=== PATIENT | male | born 1945 | race Caucasian/White ===

== ENCOUNTER 2019-05-09 07:13 | Inpatient (IN) | payer OTHER ==
[2019-05-03 16:36] VITALS: BMI 33.3
[2019-05-09] MEDS ORDERED: TRANEXAMIC ACID 1000 MG/10 ML VIAL IVPUSH ONE (07:29)
[2019-05-09] MEDS ORDERED: CEFAZOLIN 3 GM in DEXTROSE 5%-WATER - 50 ML IVPB ONE (07:29)
[2019-05-09] MEDS ORDERED: CELECOXIB 200 MG CAPSULE PO ONE (07:29)
--- NOTE | 2019-05-09 08:01 | HP ---
Satellite [facility] - Chief Complaint Chief Complaint: right knee pain - Past Medical History Allergies/Adverse Reactions: Allergies Allergy/AdvReac Type Severity Reaction Status Date / Time Penicillins Allergy Unknown Verified 05/09/19 07:34 - Current Medications Current Medications: Home Medications Medication Instructions Recorded Amlodipine Besylate [Norvasc] 5 mg PO DAILY 03/12/12 Metoprolol Succinate [Toprol Xl] 25 mg PO DAILY 05/03/19 Red Yeast Rice 600 mg PO DAILY 05/03/19 Tamsulosin HCl [Flomax] 0.4 mg PO DAILY 05/03/19 metFORMIN HCL [Metformin HCl] 500 mg PO BID 05/03/19 Satellite Physical Exam - Physical Examination Vital Signs: Vital Signs Period Temp Pulse Resp BP Sys/Greene Pulse Ox Last 24 Hr 98.2 F 77 16 155/81 General Appearance: Well Nourished, Well Developed, Alert & Oriented x3 ENT: Clear Lung: Normal air movement Heart: Regular rate & rhythm Extremities: Other (right knee- + swelling, + ttp, decr rom, nvi, xrays show grade 4 tricompartmental djd) Neurological: Intact, Alert, Oriented Satellite Impression/Plan - Impression/Plan Impression: right knee djd Operative Procedure: right aleisha tkr Date to be Performed: 05/09/19
[2019-05-09] MEDS ORDERED: DEXAMETHASONE SOD PHOSPHATE 4 MG/1 ML VIAL ONE (09:23)
[2019-05-09] MEDS ORDERED: MIDAZOLAM HCL 2 MG/2 ML SINGLE DOSE VIAL ONE ×3 (09:23→09:48)
[2019-05-09] MEDS ORDERED: KETOROLAC TROMETHAMINE 30 MG/1 ML VIAL ONE (09:23)
[2019-05-09] MEDS ORDERED: PROPOFOL 20 ML ONE ×3 (09:23→12:09)
[2019-05-09] MEDS ORDERED: ONDANSETRON 4 MG/2 ML VIAL ONE (09:23)
[2019-05-09] MEDS ORDERED: BUPIVACAINE LIPOSOME/PF (EXPAREL) 266 MG/20 ML VIAL ONE (09:48)
[2019-05-09] MEDS ORDERED: SODIUM CHLORIDE 0.9% P/F 10 ML VIAL IJ ONE (09:48)
[2019-05-09] MEDS ORDERED: ceFAZolin SODIUM 1 GM VIAL ONE ×2 (10:09→18:39)
[2019-05-09] MEDS ORDERED: VANCOMYCIN 1,000 MG VIAL (RESTRICTED TO ID ONLY) ONE (10:09)
[2019-05-09] MEDS ORDERED: ONDANSETRON 4 MG/2 ML VIAL IVPUSH PRN (10:33)
[2019-05-09] MEDS ORDERED: MAG HYDROX/AL HYDROX/SIMETH 30 ML UNIT-DOSE CUP PO PRN (10:33)
[2019-05-09] MEDS ORDERED: MAGNESIUM HYDROX 2400MG/30ML ORAL SUSPENSION 30 ML CUP PO PRN (10:33)
[2019-05-09] MEDS ORDERED: LACTATED RINGERS SOLUTION 1,000 ML IV SCH (10:45)
[2019-05-09] MEDS ORDERED: oxyCODONE HCL 5 MG TABLET PO PRN (11:41)
[2019-05-09] MEDS ORDERED: VANCOMYCIN 1,000 MG VIAL (RESTRICTED TO ID ONLY) IVPB ONE (12:24)
--- NOTE | 2019-05-09 12:51 | OP ---
Operative Note - Note: Operative Date: 05/09/19 (ramana) Pre-Operative Diagnosis: right knee djd Operation: right aleisha tkr Post-Operative Diagnosis: Same as Pre-op Surgeon: London Bacon Soa Integration Developer: Mina Feldman Anesthesia: Spinal, Local Specimens Removed: bone fragments Estimated Blood Loss (mls): 200 Operative Report Dictated: Yes
[2019-05-09] MEDS ORDERED: ACETAMINOPHEN 325 MG TABLET (FP) ONE (13:49)
[2019-05-09] MEDS: ACETAMINOPHEN 325 MG TABLET (FP) PO SCH ×2 (13:53→18:50)
[2019-05-09] MEDS: oxyCODONE HCL 5 MG TABLET PO PRN ×2 (16:24→21:17)
[2019-05-09] MEDS: metFORMIN HCL 500 MG TABLET (FP) PO SCH (16:25)
[2019-05-09] MEDS: INSULIN SLIDING SCALE (NOVOLOG) 1 VIAL SQ SCH ×2 (18:00→21:19)
[2019-05-09] MEDS: CEFAZOLIN 3 GM in DEXTROSE 5%-WATER 100 ML IVPB SCH (18:50)
--- NOTE | 2019-05-09 20:58 | SPEC ---
DATE OF OPERATION: 05/09/2019 PREOPERATIVE DIAGNOSIS: Degenerative joint disease, right knee. POSTOPERATIVE DIAGNOSIS: Degenerative joint disease, right knee. PROCEDURE: Right total knee replacement with robotic-assisted navigation (MAKOplasty) - cementless. SURGICAL ATTENDING: London Bacon MD SAP SOLUTION MANAGER CONSULTANT: AMPARO Hughes ANESTHESIA: Regional and spinal. CLOSURE: A Press-Fit [place] total knee system Triathlon with an 8 femur, 8 tibia, 11 polyethylene, 40 patella; No. 1 Vicryl, fascia; 0 and 2-0 for subcutaneous; and 3-0 Monocryl subcuticular with skin glue for skin; 4-0 undyed Vicryl for pin sites. ESTIMATED BLOOD LOSS: Less than 100 mL. COMPLICATIONS: None. CONDITION: To recovery room in stable condition. DESCRIPTION OF OPERATIVE PROCEDURE: Patient was taken to the operating room on May 09, 2019. Regional and spinal anesthesia was administered by the anesthesiologist. IV Kefzol was administered prophylactically prior to the case as well as TXA. The right lower extremity was prepped and draped in the usual sterile fashion. The midline 10- to 12-cm longitudinal incision was made. Hemostasis was achieved with Bovie cautery. Sharp dissection was carried down to the extensor mechanism which was perform the procedure. Medial parapatellar arthrotomy was then performed, leaving a cuff of tissue for later closure. The patella was inverted and the knee was flexed up. The fat pad was excised. Subperiosteal dissection was done on the anteromedial proximal tibia until the knee was able to be brought forward. This was facilitated by taking the ACL, PCL and medial and lateral menisci. Checkpoints were placed in both the femur and in the tibia. Two parallel threaded pins were drilled superior to the knee joint through the already made incision from anterior to posterior just going through the anterior cortex but just engaging but not going through the posterior cortex. Two threaded pins were drilled through 2 small stab incisions in parallel fashion 1 handbreadth below the tibial tubercle through the anterior cortex of the tibia and engaging but not going through the posterior cortex. Both sets of pins were attached to navigation arrays for the VIJAY system. The knee was then registered with the navigation system with center of rotation of the hip, medial and lateral malleoli and multiple sites both on the tibia and on the femur. Confirmation of excellent registration was confirmed by "popping the bubbles." At this time, the knee was thoroughly inspected to remove all osteophytes around the knee. The knee was then tensioned in varus/valgus at both full extension and at 90 degrees of flexion to ascertain our gaps. The virtual position of the components was optimized to ensure equal gaps throughout the range of motion. Once this was performed, the robot was brought into the field, was registered. The bone was cut as per the specifications on both the tibia and on the femur. The box cuts were then made as well. Excellent trial stability was obtained on the femur. The tibial baseplate was allowed to "find itself" and then was clipped into place. Confirmation of excellent external rotation of that component was confirmed by the navigation device as well.The patella was calibered for thickness and cut at the appropriate level. The appropriate lollipop was used to drill 3 holes in the patella and a trial asymmetric patellar button was applied. The knee was taken through a range of motion and found to have excellent stability from full extension to full flexion with excellent tracking of the patella. The trial components were then removed. The lug holes were drilled in the femur. The cementless keel was punched in the tibia. The real Press-Fit components were malleted into place, first with the tibia and then with the femur, and then the patella was crimped into place as well. The real polyethylene liner was then clipped into place. Range of motion, stability and tracking were as described earlier. The knee was thoroughly irrigated with copious amounts of irrigation. Vancomycin powder was placed inside the joint. The medial parapatellar arthrotomy was then closed using No. 1 Vicryl interrupted suture. Post closure of the arthrotomy, the knee was taken through a range of motion and found to have no undue tension on the repair. The subcutaneous was then pulse antibiotic irrigated, closed with 0 and 2-0 Vicryl and 3-0 Monocryl subcuticular with skin glue for the skin. Prior to closure, the checkpoints were removed as were the threaded pins. The tibial pin sites were closed with 4-0 undyed Vicryl. A sterile pressure Aquacel dressing was applied. No tourniquet was used during the case. The total blood loss was approximately 100 mL. No complication. Patient was transferred to recovery in stable condition. Delphine ESTRADA/[id number]
[2019-05-09] MEDS ORDERED: INSULIN (NOVOLOG) ASPART 100 UNITS/ML 10ML VIAL ONE (21:13)
[2019-05-09] MEDS: SENNOSIDES/DOCUSATE COMBO (SENNA PLUS) TABLET (UD) PO SCH (21:17)
[2019-05-10] MEDS: ACETAMINOPHEN 325 MG TABLET (FP) PO SCH ×5 (00:23→23:50)
[2019-05-10] MEDS ORDERED: DEXTROSE 5%-WATER 100 ML IVPB ONE ×2 (01:12→01:13)
[2019-05-10] MEDS ORDERED: ceFAZolin SODIUM 1 GM VIAL ONE ×2 (01:12→01:13)
[2019-05-10] MEDS: CEFAZOLIN 3 GM in DEXTROSE 5%-WATER 100 ML IVPB SCH (02:05)
[2019-05-10] MEDS: metFORMIN HCL 500 MG TABLET (FP) PO SCH ×2 (06:04→16:26)
[2019-05-10] MEDS: INSULIN SLIDING SCALE (NOVOLOG) 1 VIAL SQ SCH ×5 (06:50→21:27)
[2019-05-10 08:05] LABS: HEMATOCRIT 35.6 % (35.4-49); HEMOGLOBIN 12.2 GM/dl (11.7-16.9); MCH 30.5 pg (25.7-33.7); MCHC 34.2 g/dl (32.0-35.9); MEAN CELL VOLUME 89.3 fl (80-96); MEAN PLT VOLUME 9.3 fl (7.5-11.1); PLATELET COUNT 155 K/MM3 (134-434); RBC 3.99 M/mm3 (4.00-5.60); RDW 12.3 % (11.9-15.9); WHITE BLOOD COUNT 5.9 K/mm3 (4.0-10.8)
[2019-05-10] MEDS: TAMSULOSIN HCL 0.4 MG CAP PO SCH (08:07)
[2019-05-10] MEDS: ASPIRIN 325 MG TABLET PO SCH (08:07)
[2019-05-10] MEDS: metoPROLOL SUCCINATE 25 MG TAB.SR.24H (FP) PO SCH (09:50)
[2019-05-10] MEDS: SENNOSIDES/DOCUSATE COMBO (SENNA PLUS) TABLET (UD) PO SCH ×2 (09:50→21:26)
[2019-05-10] MEDS: MULTIVITAMINS (DAILY MVI) TABLET (FP) PO SCH (09:50)
[2019-05-10] MEDS: amLODIPine BESYLATE 5 MG TABLET (FP) PO SCH (09:50)
[2019-05-10] MEDS: oxyCODONE HCL 5 MG TABLET PO PRN ×3 (09:50→19:48)
[2019-05-10] MEDS: PANTOPRAZOLE 40 MG TABLET (FP) PO SCH (09:50)
--- NOTE | 2019-05-10 10:20 | PN ---
Progress Note (short form) - Note Progress Note: Ortho Pt seen and examined s/p right aleisha tkr pod #1 Selected Entries 05/10/19 09:46 Temperature 97.5 F L Pulse Rate 65 Respiratory 18 Rate Blood Pressure 142/53 L Laboratory Tests 05/10/19 07:25 WBC 5.9 Hgb 12.2 Hct 35.6 Plt Count 155 dressing c/d/i, calf soft, nt rom 0-40, nvi a/p PT dvt ppx pain control d/c home tomorrow if stable
--- NOTE | 2019-05-10 14:51 | PN ---
Progress Note (short form) - Note Progress Note: ANESTHESIA POSTOP 73 YO MALE POD#1 S/P R TKA, SPINAL AND PNB Patient resting in chair. Pain adequately controlled. Tolerating PO VSS, Afebrile Continue current care. Encouraged IS and active participation in PT. No anesthetic complications
[2019-05-11] MEDS: ACETAMINOPHEN 325 MG TABLET (FP) PO SCH ×2 (05:55→12:29)
[2019-05-11] MEDS: metFORMIN HCL 500 MG TABLET (FP) PO SCH (06:13)
[2019-05-11] MEDS: INSULIN SLIDING SCALE (NOVOLOG) 1 VIAL SQ SCH ×2 (06:16→12:29)
[2019-05-11 07:50] LABS: HEMATOCRIT 32.4 % (35.4-49); MCH 30.5 pg (25.7-33.7); MEAN CELL VOLUME 89.7 fl (80-96); MEAN PLT VOLUME 9.5 fl (7.5-11.1); PLATELET COUNT 131 K/MM3 (134-434); RBC 3.61 M/mm3 (4.00-5.60); RDW 12.2 % (11.9-15.9)
--- NOTE | 2019-05-11 08:22 | PN ---
Progress Note (short form) - Note Progress Note: Ortho Pt seen and examined s/p right aleisha tkr pod #2 Selected Entries 05/11/19 06:48 Temperature 99.5 F Pulse Rate 83 Respiratory 16 Rate Blood Pressure 155/60 Laboratory Tests 05/11/19 07:30 WBC 6.0 Hgb 11.0 L Hct 32.4 L Plt Count 131 L dressing c/d/i, calf soft, nt rom 0-60, nvi a/p PT dvt ppx pain control d/c home today f/u in 1 week
--- NOTE | 2019-05-11 08:24 | DS ---
Physical Examination Vital Signs: Vital Signs Temperature 99.5 F 05/11/19 06:48 Pulse Rate 83 05/11/19 06:48 Respiratory Rate 16 05/11/19 06:48 Blood Pressure 155/60 05/11/19 06:48 O2 Sat by Pulse Oximetry (%) 93 L 05/11/19 06:48 ...Motor Strength: WNL Labs: CBC, BMP 05/11/19 07:30 Discharge Summary Reason For Visit: OSTEOARTHRITIS Procedures: Principal: right tkr Hospital Course: admitted for elective right aleisha tkr, post-op as per protocol, stable for d/c Condition: Good - Instructions Diet, Activity, Other Instructions: Post-op Instructions-Total Knee Replacement Call the office for a follow-up appointment in 1 week - [phone] Aspirin 325mg daily for 6 weeks. Pain medication was sent into your pharmacy. Apply Graduated Compression Stockings (TEDs) to both lower extremities- remove daily for hygiene ONLY Apply Sequential Compression Device (SCDs) to both Lower extremities remove for PT and hygiene ONLY Apply cold packs to affected area for 15 minutes every 2 hours. Physical Therapist will come to your home for the first 5 days. You will be set up with outpatient PT at your first post-operative visit. Patient may ambulate as tolerated-encourage self care (at least every 2-3 hours while awake) with walker or cane Maintain Aquacel (waterproof) dressing to operative wound (will be removed by surgeon at first office visit) Shower with Aquacel dressing in place-if Aquacel integrity compromised, remove and apply dry sterile dressing and notify Orthopedist. DO NOT SHOWER unless Orthopedists approves without Aquacel dressing CONTACT THE OFFICE FOR ANY CHANGE IN YOUR CONDITION (for example-fever greater than 102 degrees, excessive bleeding from operative site, purulent drainage, severe swelling or pain) GO TO THE EMERGENCY ROOM IF THERE IS A MEDICAL EMERGENCY Knee Precautions: * Keep a rolled towel under affected heel while in bed or chair (to keep knee in extension) * Keep affected leg elevated except during mealtimes * DO NOT PLACE PILLOW UNDER AFFECTED KNEE * If you have any questions, please do not hesitate to call the office - . Referrals: London Bacon MD [Staff Physician] - Disposition: VNS/HOME HEALTH CARE - Home Medications Comprehensive Discharge Medication List: Ambulatory Orders Amlodipine Besylate [Norvasc -] 5 mg PO DAILY 03/12/12 Metoprolol Succinate [Toprol Xl] 25 mg PO DAILY 05/03/19 Red Yeast Rice 600 mg PO DAILY 05/03/19 Tamsulosin HCl [Flomax -] 0.4 mg PO DAILY 05/03/19 metFORMIN HCL [Metformin HCl] 500 mg PO BID 05/03/19 Aspirin [ASA -] 325 mg PO DAILY@0800 tablet 05/09/19 Oxycodone HCl/Acetaminophen [Percocet 5-325 mg Tablet -] 1 - 2 tab PO Q6H #50 tab MDD 8 05/09/19
[2019-05-11] MEDS: ASPIRIN 325 MG TABLET PO SCH (09:00)
[2019-05-11] MEDS: SENNOSIDES/DOCUSATE COMBO (SENNA PLUS) TABLET (UD) PO SCH (09:29)
[2019-05-11] MEDS: metoPROLOL SUCCINATE 25 MG TAB.SR.24H (FP) PO SCH (09:30)
[2019-05-11] MEDS: PANTOPRAZOLE 40 MG TABLET (FP) PO SCH (09:30)
[2019-05-11] MEDS: MULTIVITAMINS (DAILY MVI) TABLET (FP) PO SCH (09:30)
[2019-05-11] MEDS: TAMSULOSIN HCL 0.4 MG CAP PO SCH (09:30)
[2019-05-11] MEDS: amLODIPine BESYLATE 5 MG TABLET (FP) PO SCH (09:30)
[2019-05-11] MEDS: oxyCODONE HCL 5 MG TABLET PO PRN (09:31)
[2019-05-11 09:34] VITALS: BP 144/60; PULSE 72; TEMP 98.5
--- NOTE | 2019-05-15 17:14 | PATH ---
Surgical Pathology Report Patient Name: MAYNOR MCFARLAND Med. Rec. #: [id number] /Age/Gender: 1945 (Age: 73) / M Account: [id number] Location: [facility] MED-SURG Taken: 05/09/2019 Received: 05/09/2019 Reported: 05/15/2019 Physicians: London Bcaon M.D. Specimen(s) Received RIGHT KNEE BONES Clinical History Right knee osteoarthritis Final Diagnosis BONES, KNEE, RIGHT, TOTAL KNEE REPLACEMENT MAKOPLASTY: BONE WITH DEGENERATIVE JOINT DISEASE, DENSE FIBROCONNECTIVE AND FIBROADIPOSE TISSUE. Electronically Signed Romana Harris M.D. Gross Description Received in formalin labeled "right knee bones," is an 8.0 x 5.0 x 4.0 cm aggregate of multiple portions of bone and soft tissue, consistent with knee bones. There are areas of eburnation present. The remaining articular surfaces are velez-yellow and diffusely granular. The underlying trabecular bone is yellow and hard. Youth Development Specialist sections are submitted in one cassette, following decalcification. BRO/05/11/2019 jo/05/11/2019
== END 2019-05-11 13:24 | disposition home health service (06) | DRG 470 ==
LOC: FM/S 07:13
PROVIDERS: ADMIT Orthopaedic Surgery; ATTEND Orthopaedic Surgery
PROC: 8E0Y0CZ Robotic Assisted Procedure of Lower Extremity, Open Approach (ICD-10-PCS; 2019-05-09)
PROC: 0SRC0JA Replacement of Right Knee Joint with Synthetic Substitute, Uncemented, Open Approach (ICD-10-PCS; principal; 2019-05-09 11:11)
DX: M17.11 Unilateral primary osteoarthritis, right knee (principal)
CPT/HCPCS: 36415; 73560-TC-RT-FY; 82962; 85027; 88305-TC; 88311-TC; 94760; 97116-GP; 97163-GP

== ENCOUNTER 2020-06-05 09:01 | Emergency (ER) | payer OTHER ==
[2020-06-05 09:12] VITALS: BP 130/86; PULSE 93; TEMP 99.4; BMI 64.2
--- NOTE | 2020-06-05 09:21 | PDOC ---
History of Present Illness - General Chief Complaint: Pain, Acute Stated Complaint: right back pain Time Seen by Provider: 06/05/20 09:13 - History of Present Illness Initial Comments: 06/05/20 09:37 Chief complaint: Right flank pain HPI: Awoke yesterday morning with right flank pain. No radiation to the abdomen, groin, or legs. No injury or heavy physical work performed recently. No urinary tract symptoms including dysuria frequency urgency hesitancy or hematuria. Had "kidney stone" once approximately 15 years ago. Uncomplicated. Review of systems: As noted above. Otherwise, no fever/chills, headache, URI symptoms, sore throat, cough, chest pain, shortness of breath, nausea, vomiting, diarrhea, anorexia, pelvic pain, leg pain, leg numbness tingling or weakness. Past medical history: Kidney stone once in the past as noted above. High blood pressure and esv-vubxvio-gygqdrogv diabetes controlled. BPH. Medications: Metoprolol, amlodipine, tamsulosin, Metformin Social history: Quit drinking several years ago. No tobacco. No drugs. Stable home and family. Family history: Reviewed and noncontributory including early coronary artery disease, kidney disease, metabolic diseases including diabetes, and cancer Physical exam: Alert and oriented, moderately obese, mild to moderate distress due to right flank pain. Cooperative. Afebrile, vital signs normal No pallor or icterus. PERRLA, ENT clear Neck supple without bruit mass or nodes Lungs clear, full breath sounds bilaterally CV S1-S2 normal without murmur rub or gallop pulses full and symmetric no JVD or edema no bruits No chest wall or rib cage tenderness or deformity Abdomen soft nontender without mass organomegaly. No CVAT. No pelvic ten derness No point tenderness of the lumbosacral spine. No deformity. No inflammation. So normal lumbar lordosis. DTRs to the lower extremities intact and symmetric. No distal sensory or motor deficits suggestive of radiculopathy. Neurological C2 to 12 intact. Strength full and symmetric. No focal sensorimotor deficits. Gait stable and unimpaired Impression: Localized right flank pain, no CVAT, no urinary tract symptoms, no nausea or vomiting. Unlikely renal colic but still possible. Occult back strain appears to be the most likely etiology Plan urinalysis and further evaluation and treatment depending on results. Analgesics. Past History - Medical History Allergies/Adverse Reactions: Allergies Allergy/AdvReac Type Severity Reaction Status Date / Time Penicillins Allergy Unknown Verified 06/05/20 09:14 Home Medications: Ambulatory Orders Amlodipine Besylate [Norvasc -] 5 mg PO DAILY 03/12/12 Metoprolol Succinate [Toprol Xl] 25 mg PO DAILY 05/03/19 Red Yeast Rice 600 mg PO DAILY 05/03/19 Tamsulosin HCl [Flomax -] 0.4 mg PO DAILY 05/03/19 metFORMIN HCL [Metformin HCl] 500 mg PO BID 05/03/19 Ondansetron [Zofran *Odt*] 4 mg SL TID PRN #12 od.tablet 06/05/20 Oxycodone HCl/Acetaminophen [Percocet 5-325 mg Tablet] 1 - 2 tab PO Q6H PRN #20 tab MDD 6 06/05/20 Anemia: No Asthma: No Cancer: No Cardiac Disorders: No CVA: No COPD: No CHF: No Dementia: No Diabetes: Yes GI Disorders: No Disorders: No HTN: Yes Hypercholesterolemia: Yes Liver Disease: No Seizures: No Thyroid Disease: No - Surgical History Abdominal Surgery: No Appendectomy: No Cardiac Surgery: No Cholecystectomy: No Lung Surgery: No Neurologic Surgery: No Orthopedic Surgery: Yes (Left Knee Replacement,Right Shoulder Repair,Bilateral Bunionectomy) - Immunization History Immunization Up to Date: Yes - Psycho-Social/Smoking History Smoking Status: No Smoking History: Never smoked Have you smoked in the past 12 months: No Number of Cigarettes Smoked Daily: 1 If you are a former smoker, when did you quit?: 40 yrs ago Information on smoking cessation initiated: No - Substance Abuse Hx (Audit-C & DAST Scrn) How often the patient has a drink containing alcohol: Never Score: In Men: 4 or > Positive; In Women: 3 or > Positive: 0 Screen Result (Pos requires Nsg. Audit-10AR): Negative In the last yr the pt used illegal drug/Rx for NonMed reason: No Score: Yes response is considered Positive: 0 Screen Result (Positive result requires Nsg. DAST-10): Negative *Physical Exam - Vital Signs Last Vital Signs Temp Pulse Resp BP Pulse Ox 99.4 F 93 H 18 130/86 98 06/05/20 09:02 06/05/20 09:02 06/05/20 09:02 06/05/20 09:02 06/05/20 09:02 ED Treatment Course - LABORATORY CBC & Chemistry Diagram: 06/05/20 11:25 06/05/20 11:56 Medical Decision Making - Medical Decision Making 06/05/20 11:29 CT reveals a large 5 mm x 8 mm right mid ureteral stone, partially obstructing, with mild to moderate hydronephrosis and small amount of perinephric stranding. There is also a small stone within the kidney. Fluids and Toradol administered. CBC and chemistries drawn. Further evaluation and treatment depending on results. Pain is still present intermittently, probably as the stone slowly moves. 06/05/20 15:06 Patient has been pain-free. He is ambulating without difficulty. Attempts to reach his urologist, Dr. Dominique, unsuccessful. 2 messages left with the office staff but so far no return call. Patient is anxious to return home, he is thoroughly instructed to observe for signs of infection or unremitting pain and return to the ER immediately if they should occur. Otherwise, he is a regular patient of Dr. Dominique, having seen him only 1 to 2 weeks ago, and he will follow-up as directed within 3 days. No significant pain or other distress at discharge to follow-up as directed or return to the ER if further symptoms develop. Discharge - Discharge Information Problems reviewed: Yes Clinical Impression/Diagnosis: Renal colic on right side Condition: Improved Disposition: HOME - Admission No - Additional Discharge Information Prescriptions: Oxycodone HCl/Acetaminophen [Percocet 5-325 mg Tablet] 1 - 2 tab PO Q6H PRN #20 tab MDD 6 PRN Reason: Severe Pain Ondansetron [Zofran *Odt*] 4 mg SL TID PRN #12 od.tablet PRN Reason: Nausea - Follow up/Referral Referrals: Kolton Dominique MD [Staff Physician] - 3 days - Patient Discharge Instructions Patient Printed Discharge Instructions: DI for Kidney Stones Additional Instructions: Fluids and pain medication as directed. If pain becomes worse or unmanageable with home medication, return to ER. If there is fever/chills, cloudy or foul-s melling urine, or other sign of infection, return immediately to ER. Otherwise follow-up with urologist as directed. Strain all urine and save any particulate matter that may appear. Make sure to contact your urologist Dr. Dominique soon as possible. It is important that he keep close track of you to avoid possible infection or kidney damage if the stone does not pass in a timely fashion. - Post Discharge Activity
[2020-06-05] MEDS ORDERED: SODIUM CHLORIDE 1,000 ML IV STA (11:12)
[2020-06-05] MEDS ORDERED: KETOROLAC TROMETHAMINE 30 MG/1 ML VIAL IVPUSH ONE (11:13)
[2020-06-05] MEDS ORDERED: KETOROLAC TROMETHAMINE 30 MG/1 ML VIAL ONE (11:28)
[2020-06-05 11:48] LABS: HEMATOCRIT 46.3 % (35.4-49); HEMOGLOBIN 15.9 GM/dl (11.7-16.9); MCHC 34.3 g/dl (32.0-35.9); MEAN CELL VOLUME 87.5 fl (80-96); MEAN PLT VOLUME 9.3 fl (7.5-11.1); PLATELET COUNT 178 K/MM3 (134-434); RDW 12.9 % (11.9-15.9); WHITE BLOOD COUNT 7.4 K/mm3 (4.0-10.8)
[2020-06-05 13:01] LABS: PLATELET ESTIMATE ADEQUATE
[2020-06-05 13:03] LABS: ALBUMIN 4.1 g/dl (3.4-5.0); BILIRUBIN,TOTAL 0.9 mg/dl (0.2-1); CALCIUM 8.8 mg/dl (8.5-10); CREATININE 1.4 mg/dl (0.55-1.3); POTASSIUM 4.1 mmol/L (3.5-5.1)
== END 2020-06-05 14:20 | disposition home or self-care (01) ==
LOC: FER 09:01
PROC: 3E0233Z Introduction of Anti-inflammatory into Muscle, Percutaneous Approach (ICD-10-PCS; principal; 2020-06-05)
PROC: 3E0337Z Introduction of Electrolytic and Water Balance Substance into Peripheral Vein, Percutaneous Approach (ICD-10-PCS; 2020-06-05)
DX: N23 Unspecified renal colic (principal)
CPT/HCPCS: 36415; 74176-TC; 80053; 81003; 81015; 85025; 99285-25

== ENCOUNTER 2021-12-06 09:39 | Emergency (ER) | payer OTHER ==
[2021-12-06 10:20] VITALS: BP 160/63; PULSE 81; TEMP 99; BMI 35.9
[2021-12-06] MEDS ORDERED: ACETAMINOPHEN 500 MG TABLET (FP) PO ONE (11:03)
[2021-12-06] MEDS ORDERED: ACETAMINOPHEN 500 MG TABLET (FP) ONE (11:08)
== END 2021-12-06 13:04 | disposition home or self-care (01) ==
LOC: FER 09:39
DX: M54.50 Low back pain, unspecified (principal)
CPT/HCPCS: 76775-TC; 76856-TC; 81003; 81015; 87086; 99284-25